=== PATIENT | male | born 1985 | race Hispanic/Latino ===

== ENCOUNTER 2020-07-27 10:20 | Emergency (ER) | payer BC ==
[2020-07-27 11:47] LABS: Absolute Lymphocytes (CBC) 1.5 K/uL (0.7-4.9); Basophils % 0.9 % (0-1.3); Hematocrit 42.9 % (39.6-49.0); Lymphocytes % 31.1 % (15.3-44.8); MPV 9.5 fL (7.6-11.3); RBC Red Blood Cell Count 5.21 M/uL (4.33-5.43)
[2020-07-27 11:49] LABS: Protime INR 1.05
[2020-07-27 12:08] LABS: ALT/SGPT 37 U/L (12-78); AST/SGOT 25 U/L (15-37); Albumin 3.8 g/dL (3.4-5.0); Alkaline Phosphatase 138 U/L (45-117); BUN Blood Urea Nitrogen 13 mg/dL (7-18); Bicarbonate 28 mmol/L (21-32); Bilirubin Direct 0.1 mg/dL (0-0.2); Bilirubin Total 0.3 mg/dL (0.2-1.0); Glucose Level 97 mg/dL (74-106); Magnesium 2.1 mg/dL (1.8-2.4); Potassium 4.1 mmol/L (3.5-5.1); Protein, Total 7.8 g/dL (6.4-8.2); Sodium Level 136 mmol/L (136-145); Troponin (Emerg Dept Use Only) < 0.02 ng/mL (0.0-0.045)
--- NOTE | 2020-07-27 12:09 | RAD REPORT ---
EXAM DESCRIPTION: RAD - Chest Single View - 07/27/2020 11:25 am CLINICAL HISTORY: HTN COMPARISON: December 2017 TECHNIQUE: AP portable chest image was obtained 07/27/2020 11:25 am . FINDINGS: Lungs are clear. Interstitial pattern matches comparison. Heart and vasculature are normal . No measurable pleural effusion and no pneumothorax. No acute bony abnormality seen. No acute aortic findings suspected. IMPRESSION: No acute cardiopulmonary process. No significant change from comparison study.
[2020-07-27 12:17] LABS: NT PRO-BNP < 5 pg/mL (<125)
--- NOTE | 2020-07-27 12:18 | RAD REPORT ---
EXAM DESCRIPTION: CT - Head Brain Wo Cont - 07/27/2020 12:12 pm CLINICAL HISTORY: lightheadedness/ unable to sleep, hypertension COMPARISON: No comparisons TECHNIQUE: Axial 5 mm thick images of the head were obtained without IV contrast. All CT scans are performed using dose optimization technique as appropriate and may include automated exposure control or mA/KV adjustment according to patient size. FINDINGS: No intracranial hemorrhage, mass, edema or shift of mid-line structures. No acute infarcti on changes seen. No abnormal extra-axial fluid collections. Ventricles are normal. Mastoid air cells and visualized portions of the paranasal sinuses are clear. No acute bony findings. IMPRESSION: Negative non-contrast CT head examination.
[2020-07-27] MEDS ORDERED: MORPHINE 4 MG/ML SYR ONE (12:50)
--- NOTE | 2020-07-27 13:41 | EDPHYS ---
Physician Documentation [facility] Name: Miky Hager Age: 35 yrs Sex: Male : 1985 Arrival Date: 07/27/2020 Time: 10:23 Bed 20 Private MD: ED Physician Kevin Mireles Historical: - Allergies: 07/27 10:30 Soy; ll1 - PMHx: 10:30 None; ll1 - PSHx: 10:30 None; ll1 - Immunization history:: Flu vaccine is not up to date. - Social history:: Smoking status: Patient reports the use of cigarette tobacco products, pipe tobacco, Patient denies any tobacco usage or history of. Exam: 14:49 ECG was reviewed by the Attending Physician. kdr Vital Signs: 10:30 BP 148 / 105; Pulse 102; Resp 17; Temp 98.8; Pulse Ox 100% ; Weight 107.5 kg; Height 6 ll1 ft. 0 in. (182.88 cm); Pain 0/10; 11:53 BP 134 / 94; Pulse 92; Resp 19; Pulse Ox 100% on R/A; Pain 0/10; ss 12:54 BP 141 / 92; Pulse 90; Resp 15 S; Pulse Ox 100% on R/A; ca1 13:40 BP 131 / 79; Pulse 88; ss 10:30 Body Mass Index 32.14 (107.50 kg, 182.88 cm) ll1 MDM: 13:40 Patient medically screened. kdr 07/27 10:53 Order name: Basic Metabolic Panel kdr 07/27 10:53 Order name: CBC with Diff kdr 07/27 10:53 Order name: LFT's kdr 07/27 10:53 Order name: Magnesium kdr 07/27 10:53 Order name: NT PRO-BNP kdr 07/27 10:53 Order name: PT-INR kdr 07/27 10:53 Order name: Troponin (emerg Dept Use Only) kdr 07/27 10:53 Order name: TSH kdr 07/27 10:54 Order name: Basic Metabolic Panel; Complete Time: 13:26 EDMS 07/27 10:54 Order name: CBC with Automated Diff; Complete Time: 13:26 EDMS 07/27 10:54 Order name: Liver (Hepatic) Function; Complete Time: 13:26 EDMS 07/27 10:54 Order name: Magnesium; Complete Time: 13: EDMS 07/27 10:55 Order name: NT PRO-BNP; Complete Time: 13: EDKS 07/27 10:55 Order name: Protime (+INR); Complete Time: 13: EDMS 07/27 10:53 Order name: XRAY Chest (1 view); Complete Time: 13: [facility] 07/27 10:53 Order name: EKG; Complete Time: 10:55 [facility] 07/27 10:53 Order name: Cardiac monitoring; Complete Time: [facility] 07/27 10:53 Order name: EKG - Nurse/Tech; Complete Time: [facility] 07/27 10:53 Order name: IV Saline Lock; Complete Time: [facility] 07/27 10:53 Order name: Labs collected and sent; Complete Time: [facility] 07/27 10:53 Order name: O2 Per Protocol; Complete Time: : [facility] 07/27 10:53 Order name: O2 Sat Monitoring; Complete Time: [facility] 07/27 10:55 Order name: Troponin (Emerg Dept Use Only); Complete Time: 13: EDKS 07/27 10:55 Order name: Thyroid Stimulating Hormone; Complete Time: 13: [facility] 07/27 11:56 Order name: CT Head Brain wo Cont; Complete Time: 13:26 ss EC:49 Rate is 88 beats/min. Rhythm is regular, Normal Sinus Rhythm with No ectopy. QRS [place] kdr is Normal. MD interval is normal. QRS interval is normal. QT interval is normal. Administered Medications: 13:50 Drug: ToPROL XL (metoprolol SUCCINATE) 25 mg Route: PO; ca1 13:50 Follow up: Response: Medication administered at discharge. ca1 Disposition: 07/27/20 13:40 Discharged to Home. Impression: Hypertensive heart disease. - Condition is Stable. - Discharge Instructions: Hypertension, [id number], Palpitations, [id number]. - Prescriptions for Toprol XL 25 mg Oral Tablet - take 1 tablet by ORAL route once daily; 20 tablet. - Medication Reconciliation Form, Thank You Letter, Work release form form. - Follow up: Justina Lau MD; When: Tomorrow; Reason: If symptoms return, Further diagnostic work-up, Recheck today's complaints, Continuance of care, Re-evaluation by your physician. - Problem is new. - Symptoms have improved. Addendum: 08/04/2020 14:43 Addendum: CC" High blood pressure, HPI: The patient states that his blood pressure has k dr been intermittently elevated for the past month. He has had times had visual changes but otherwise has not had any focal c/o ROS: Other than occasional having darkened vision, all other ROS in 10 point system are negative. Exam: WDWN HM NAD. HEENT: PERRLA, no visual changes noted at this time, Neck: Supple and no changes, no nuchal rigidity, Chest: No deformity or injury, COR: RRR nl S1, S2, Lungs CTAB, Abd: soft, NT/ND,Neuro: A\\T\\O x3, No n/v compromise or deficits. Addendum: MDM: The patient was asymptomatic in the ED and his BP improved with the interventions given. He was happy with the care provided and the plan for discharge and follow-up.. Signatures: Dispatcher [employer] EDMS Kevin Mireles MD MD kdr Noah Batista RN RN jl7 Kasia Harvey RN RN ca1 Delia Vazquez RN RN ll1 Corrections: (The following items were deleted from the chart) 07/27 13:53 13:40 07/27/2020 13:40 Discharged to Home. Impression: Hypertensive heart disease. jl7 Condition is Stable. Forms are Medication Reconciliation Form, Thank You Letter, Antibiotic Education, Prescription Opioid Use. Follow up: Justina Lau; When: Tomorrow; Reason: If symptoms return, Further diagnostic work-up, Recheck today's complaints, Continuance of care, Re-evaluation by your physician. Problem is new. Symptoms have improved. kdr
--- NOTE | 2020-07-27 13:41 | ER ---
Nurse's Notes [facility] Name: Miky Hager Age: 35 yrs Sex: Male : 1985 Arrival Date: 07/27/2020 Time: 10:23 Bed 20 Private MD: Diagnosis: Hypertensive heart disease Presentation: 07/27 10:30 Chief complaint: Patient states: BP elevation for 1 week. BP 180/120 Saturday. Has been ll1 lightheaded and vision goes dark at times for 1 week. No cough or fever. [place] sweaty at times. Sent by Dr. Lau. Coronavirus screen: Client denies travel out of the [place] in the last 14 days. At this time, the client does not indicate any symptoms associated with coronavirus-19. Ebola Screen: Patient denies travel to an Ebola-affected area in the 21 days before illness onset. Initial Sepsis Screen: Does the patient meet any 2 criteria? HR > 90 bpm. No. Patient's initial sepsis screen is negative. Does the patient have a suspected source of infection? No. Patient's initial sepsis screen is negative. Risk Assessment: Do you want to hurt yourself or someone else? Patient reports no desire to harm self or others. Onset of symptoms was July 20, 2020. 10:30 Method Of Arrival: Ambulatory ll1 10:30 Acuity: CAROL 3 ll1 Historical: - Allergies: 10:30 Soy; ll1 - PMHx: 10:30 None; ll1 - PSHx: 10:30 None; ll1 - Immunization history:: Flu vaccine is not up to date. - Social history:: Smoking status: Patient reports the use of cigarette tobacco products, pipe tobacco, Patient denies any tobacco usage or history of. Screenin:07 Abuse screen: Denies threats or abuse. Denies injuries from another. Nutritional ss screening: No deficits noted. Tuberculosis screening: Never had TB. Fall Risk None identified. Assessment: 11:07 General: Appears in no apparent distress. comfortable, Behavior is cooperative, ss anxious, Denies fever, feeling ill, chills. General: Pt reports a life style change as far as work goes over the past 1.5 months. Pt reports that he has not had many days off recently and his sleep cycle is completely thrown off causing him to get very little sleep.. Pain: Denies pain. Neuro: Level of Consciousness is awake, alert, obeys commands, Oriented to person, place, time, situation, Oxidation Engineer are equal bilaterally Moves all extremities. Full function Gait is steady, Speech is normal, Facial symmetry appears normal, Pupils are PERRLA, Pt reports hypersensitivity to skin x 1 week. Reports "lightheadedness" that comes and goes x 1.5 weeks. Denies numbness headache. Cardiovascular: Capillary refill < 3 seconds is brisk fingers. Respiratory: Airway is patent Respiratory effort is even, unlabored, Respiratory pattern is regular, symmetrical, Breath sounds are clear bilaterally. Denies cough, shortness of breath pain with respiration, pain with cough, pain with movement. GI: Patient currently denies abdominal pain, diarrhea, nausea, vomiting. : EENT: Oral mucosa is moist. Throat is clear. Derm: Skin is intact, is healthy with good turgor, Skin is dry, Skin is pink, warm \\T\\ dry. normal. Musculoskeletal: Circulation, motion, and sensation intact. Range of motion: intact in all extremities, Swelling absent. 12:02 Reassessment: Patient appears in no apparent distress at this time. Patient and/or ca1 family updated on plan of care and expected duration. Pain level reassessed. Patient is alert, oriented x 3, equal unlabored respirations, skin warm/dry/pink. 12:54 Reassessment: Patient appears in no apparent distress at this time. Patient and/or ca1 family updated on plan of care and expected duration. Pain level reassessed. Patient is alert, oriented x 3, equal unlabored respirations, skin warm/dry/pink. 13:40 Reassessment: Patient appears in no apparent distress at this time. Patient and/or ss family updated on plan of care and expected duration. Pain level reassessed. Patient is alert, oriented x 3, equal unlabored respirations, skin warm/dry/pink. Patient denies pain at this time. Vital Signs: 10:30 BP 148 / 105; Pulse 102; Resp 17; Temp 98.8; Pulse Ox 100% ; Weight 107.5 kg; Height 6 ll1 ft. 0 in. (182.88 cm); Pain 0/10; 11:53 BP 134 / 94; Pulse 92; Resp 19; Pulse Ox 100% on R/A; Pain 0/10; ss 12:54 BP 141 / 92; Pulse 90; Resp 15 S; Pulse Ox 100% on R/A; ca1 13:40 BP 131 / 79; Pulse 88; ss 10:30 Body Mass Index 32.14 (107.50 kg, 182.88 cm) ll1 ED Course: 10:23 Patient arrived in ED. ds1 10:28 Arm band placed on. ll1 10:33 Triage completed. ll1 10:53 Kevin Mireles MD is Attending Physician. kdr 11:06 Chandrika Brown, RN is Primary Nurse. ss 11:07 Patient has correct armband on for positive identification. Bed in low position. Call ss light in reach. Side rails up X2. Adult w/ patient. teletypesetter monitor on. Pulse ox on. NIBP on. Warm blanket given. 11:25 XRAY Chest (1 view) In Process Unspecified. EDMS 11:30 Initial lab(s) drawn, by ED staff, sent to lab. Inserted saline lock: 20 gauge in right jl7 antecubital area, using aseptic technique. Blood collected. 12:11 CT Head Brain wo Cont In Process Unspecified. EDMS 13:40 Justina Lau MD is Referral Physician. kdr 13:52 No provider procedures requiring assistance completed. IV discontinued, intact, jl7 bleeding controlled, No redness/swelling at site. Pressure dressing applied. Administered Medications: 13:50 Drug: ToPROL XL (metoprolol SUCCINATE) 25 mg Route: PO; ca1 13:50 Follow up: Response: Medication administered at discharge. ca1 Outcome: 13:40 Discharge ordered by . kdr 13:53 Discharged to home ambulatory. jl7 13:53 Condition: stable 13:53 Discharge instructions given to patient, Instructed on discharge instructions, follow up and referral plans. medication usage, Demonstrated understanding of instructions, follow-up care, medications, Prescriptions given X 1. 13:53 Patient left the ED. jl7 Signatures: Dispatcher [employer] EDMS Kevin Mireles MD MD [facility] Kami Pena ds1 Chandrika Brown, RN RN ss Noah Batista RN RN jl7 Kasia Harvey RN RN ca1 Delia Vazquez RN RN ll1
[2020-07-27 14:00] VITALS: TEMP 98.8; O2SAT 100
[2020-07-27] MEDS ORDERED: METOPROLOL XL 50 MG TAB PO ONE (14:02)
[2020-07-27 14:04] VITALS: BP 131/79
== END 2020-07-27 13:53 | disposition home or self-care (01) ==
LOC: ER 10:20
DX: I11.9 Hypertensive heart disease without heart failure (principal); F17.290 Nicotine dependence, other tobacco product, uncomplicated; Z91.018 Allergy to other foods
CPT/HCPCS: 36415; 70450; 71045; 80048; 80076; 83735; 83880; 84443; 84484; 85025; 85610; 93005; 99284